=== PATIENT | female | born 1930 | race Caucasian/White ===

== ENCOUNTER → 2017-05-25 | Outpatient (CLI) | payer MEDICARE, OTHER ==
[~2017-05-25] MED LIST: ASPIRIN (CHILDR81 MG PO; BENEFIBER1 EAC2 PO; BETAGAN 0.5%5 ML OPHTH; COMPAZINE10 MG PO; DIOVAN320 MG PO; FISH OIL 1,2001 EACH PO; HUMULIN 70100 UNIT/M SUB-Q; HUMULIN R100 UNIT/1 SUB-Q; HYDRODIURIL25 MG PO; I-CAPS WITH LU1 EACH PO; IPRAT-ALBUT 0.5-3 ML INH; KCL UD LIQ20 MEQ/15 PO; KEFLEX250 MG PO; LACTINEX (FLORA1 TAB PO; LASIX20 MG PO; LEVOTHROID (S100 MCG PO; LEVOTHROID (S125 MCG PO; LOPERAMIDE2 M1 PO; MAG-OX-400(241400 MG PO; MELATONIN10 M2 PO; MELATONIN5 M2 PO; MYCOLOG CREAM 330 GM TOP; NORCO 5-325 MG1 TAB PO; NOVOLOG MI100 UNIT/2 SUB-Q; PREPARATION H O57 GM TRANS; PRILOSEC20 M1 PO; PRILOSEC20 MG PO; PROBIOTIC1 EAC1 PO; PROTONIX40 MG PO; SANCTURA 20MG20 MG PO; THERA-VITE W/ B1 TAB PO; THERAGRAN-M1 TAB PO; TYLENOL EXTRA500 MG PO; VALSARTAN-HCTZ1 EAC3 PO; VESICARE10 MG PO; XALATAN2.5 ML OPHTH; [UNRECOGNIZED DRUG - OTHER] TOP
== END ==
LOC: GKIC 05-04 12:00
DX: C19 Malignant neoplasm of rectosigmoid junction (principal); Z12.89 Encounter for screening for malignant neoplasm of other sites; G62.0 Drug-induced polyneuropathy; K52.0 Gastroenteritis and colitis due to radiation; R74.0 Nonspecific elevation of levels of transaminase and lactic acid dehydrogenase [LDH]; N39.0 Urinary tract infection, site not specified; D72.829 Elevated white blood cell count, unspecified
CPT/HCPCS: A9552